=== PATIENT | male | born 1990 | race Two or more races ===

== ENCOUNTER 2018-03-15 12:40 | Emergency (ER) | payer SELFPAY ==
[~2018-03-15] VITALS: Ht 167.6 cm; Wt 59.0 kg
--- NOTE | 2018-03-15 13:00 | Emergency Room Report ---
History of Present Illness General Chief Complaint: Alcohol Intoxication Source: EMS Present Illness HPI 27-year-old male patient presents ER brought in by ambulance for alcohol intoxication. Unable to assess patient history. Patient sleeping during initial interview, in no acute distress. Nurse reports patient is frequently seen for alcohol intoxication. Allergies: Coded Allergies: UNABLE TO ASSESS (Unverified , 03/15/18) Patient History Past Medical History: see triage record Reviewed Nursing Documentation: PMH: Agreed; PSxH: Agreed Nursing Documentation-PMH Past Medical History Deferred: Pt Cognitively Impaired Past Medical History: No History, Except For Review of Systems All Other Systems: negative except mentioned in HPI Physical Exam Vital Signs Date Time Temp Pulse Resp B/P (MAP) Pulse Ox O2 Delivery O2 Flow Rate FiO2 03/15/18 11:46 72 20 100/50 96 Room Air Sp02 EP Interpretation: reviewed, normal General Appearance: well appearing, no apparent distress, alert, GCS 15, non- toxic Head: normocephalic, atraumatic, other - no lacerations, no hematoma, negative Vela sign, negative Raccoon eyes Eyes: bilateral eye normal inspection, bilateral eye PERRL ENT: hearing grossly normal, normal pharynx, no angioedema, normal voice, TMs + canals normal - no hemotympanum, uvula midline, moist mucus membranes Neck: full range of motion Respiratory: lungs clear, normal breath sounds, no rhonchi, no respiratory distress, no accessory muscle use, no wheezing, speaking full sentences Cardiovascular #1: regular rate, rhythm, no edema Gastrointestinal: non tender, soft, no mass, non-distended, no guarding, no rebound Genitourinary: no CVA tenderness Musculoskeletal: back normal, digits/nails normal, gait/station normal, normal range of motion, non-tender Neurologic: alert, oriented x3, responsive, motor strength/tone normal, sensory intact Psychiatric: mood/affect normal Skin: no rash Lymphatic: no adenopathy Medical Decision Making PA Attestation Dr. Mcmahon is my supervising Physician whom patient management has been discussed with. Diagnostic Impression: Primary Impression: Acute alcoholic intoxication ER Course Pt. presents to the ED BIBA ambulance for ETOH intoxication. multiple differentials considered. Vital signs: are WNL, pt. is afebrile ER course: Patient resting comfortably in no acute distress. Patient asleep during initial interview. Physical exam benign, lungs clear to auscultation, no trauma or lacerations to the head, negative Vela sign, negative raccoon eyes. Will allow patient to sleep off alcohol. Patient awoke and ambulated around ER. Patient denies acute symptoms in the ER at this time. Patient requesting to be discharged home. Patient appears stable for discharge to home, ambulating without difficulty. Instructed patient to not drink alcohol in excess. ER precautions given. Do not believe patient is a danger to herself or others at this time. DISCHARGE: At this time pt is stable for d/c to home. Patient is resting comfortably, in no acute distress, nontoxic appearing, talking without difficulty. Patient to take medications as instructed Will provide with patient care instructions and any necessary prescriptions. Care plan and follow-up instructions provided. Patient instructed to follow-up with primary care provider in 3 - 5 days. Patient questions asked and answered. Patient reports understanding and agreement to treatment plan. ER precautions given. Patient instructed to return to ER immediately for any new or worsening of symptoms including but not limited to increasing SOB, persistent fever, chest pain, intractable vomiting. - Please note that this Emergency Department Report was dictated using [employer] engineer technology software, occasionally this can lead to erroneous entry secondary to interpretation by the dictation equipment. Last Vital Signs Date Time Temp Pulse Resp B/P (MAP) Pulse Ox O2 Delivery O2 Flow Rate FiO2 03/15/18 11:46 72 20 100/50 96 Room Air Disposition: HOME, SELF-CARE Condition: Stable Patient Instructions: Alcohol Intoxication, [id number] Additional Instructions: Followup with primary care provider in 3 -5 days. Do not drink alcohol in excess. Patient questions asked and answered. ER precautions given, patient instructed to return to ER immediately for any new or worsening of symptoms. Hernan Ferrari Mar 15, 2018 13:00
[2018-03-15 14:33] VITALS: BP 100/50
[2018-03-15 14:34] VITALS: BP 100/50
== END 2018-03-15 15:30 | disposition home or self-care (01) ==
LOC: EDBD 12:40 → EMR 15:18
DX: F10.129 Alcohol abuse with intoxication, unspecified (principal)
CPT/HCPCS: 99283

== ENCOUNTER 2018-03-22 11:37 | Emergency (ER) | payer SELFPAY ==
[~2018-03-22] VITALS: Ht 170.2 cm; Wt 68.0 kg
--- NOTE | 2018-03-22 15:46 | Emergency Room Report ---
History of Present Illness General Chief Complaint: Alcohol Intoxication Present Illness HPI 27-year-old male patient presents the ER brought in by ambulance for EtOH intoxication. Patient is well-known to this ER for for previous visits to the ER for EtOH intoxication. Patient is resting comfortably in hallway bed. Per initial report, patient denies acute complaints. Allergies: Coded Allergies: UNABLE TO ASSESS (Unverified , 03/15/18) Patient History Past Medical History: see triage record Reviewed Nursing Documentation: PMH: Agreed; PSxH: Agreed Review of Systems All Other Systems: negative except mentioned in HPI Physical Exam Vital Signs Date Time Temp Pulse Resp B/P (MAP) Pulse Ox O2 Delivery O2 Flow Rate FiO2 03/22/18 11:32 97.9 98 18 138/70 100 Room Air 97.9 Sp02 EP Interpretation: reviewed, normal General Appearance: well appearing, no apparent distress, alert, GCS 15, non- toxic Head: normocephalic, atraumatic Eyes: bilateral eye normal inspection, bilateral eye PERRL ENT: hearing grossly normal, normal pharynx, no angioedema, normal voice, uvula midline, moist mucus membranes Neck: full range of motion Respiratory: lungs clear, normal breath sounds, no rhonchi, no respiratory distress, no accessory muscle use, no wheezing, speaking full sentences Cardiovascular #1: regular rate, rhythm, no edema Gastrointestinal: non tender, soft, no mass, non-distended, no guarding, no rebound Musculoskeletal: back normal, digits/nails normal, gait/station normal, normal range of motion, non-tender Neurologic: alert, oriented x3, responsive, motor strength/tone normal, sensory intact Psychiatric: mood/affect normal Medical Decision Making PA Attestation Dr. Mcmahon is my supervising Physician whom patient management has been discussed with. Diagnostic Impression: Primary Impression: Acute alcoholic intoxication ER Course Pt. presents to the ED BIB ambulance c/o alcohol intoxication Ddx considered but are not limited to drug use, alcohol use, psychosis. Vital signs: are WNL, pt. is afebrile ER COURSE: patient resting comfortably in bed, in no acute distress, nontoxic appearing. Physical exam benign, lungs clear to auscultation, no trauma or lacerations, no abdominal TTP. Will allow patient to sleep off EtOH intoxication Patient awoke and watching videos on cell phones. Patient requested food. Patient able to eat food and drink liquids without difficulty. Patient able to answer questions, and AOx4 patient requesting to leave. Patient able to walk and talk without difficulty. Patient resting comfortably in no acute distress. Patient asleep during initial interview. Patient denies acute symptoms in the ER at this time. Patient requesting to be discharged home. Patient appears stable for discharge to home, ambulating without difficulty. Instructed patient to not drink alcohol in excess. ER precautions given. Do not believe patient is a danger to herself or others at this time. DISCHARGE: At this time pt is stable for d/c to home. Patient is resting comfortably, in no acute distress, nontoxic appearing, talking without difficulty. Patient to take medications as instructed Will provide with patient care instructions and any necessary prescriptions. Care plan and follow-up instructions provided. Patient instructed to follow-up with primary care provider in 3 - 5 days. Patient questions asked and answered. Patient reports understanding and agreement to treatment plan. ER precautions given. Patient instructed to return to ER immediately for any new or worsening of symptoms including but not limited to increasing SOB, persistent fever. - Please note that this Emergency Department Report was dictated using [employer] games mechanic technology software, occasionally this can lead to erroneous entry secondary to interpretation by the dictation equipment. Last Vital Signs Date Time Temp Pulse Resp B/P (MAP) Pulse Ox O2 Delivery O2 Flow Rate FiO2 03/22/18 11:32 97.9 98 18 138/70 100 Room Air 97.9 Disposition: HOME, SELF-CARE Condition: Stable Patient Instructions: Alcohol Intoxication, [id number] Additional Instructions: Followup with primary care provider in 3 -5 days. Take medications as directed. Patient questions asked and answered. ER precautions given, patient instructed to return to ER immediately for any new or worsening of symptoms. Hernan Ferrari Mar 22, 2018 15:46
[2018-03-22 19:24] VITALS: BP 122/72
[2018-03-22 19:26] VITALS: BP 122/71
== END 2018-03-22 19:26 | disposition home or self-care (01) ==
LOC: EDUNIT# 11:37 → EDBD 11:37 → EMR 14:40
DX: F10.129 Alcohol abuse with intoxication, unspecified (principal)
CPT/HCPCS: 99283

== ENCOUNTER 2020-05-19 22:49 | Emergency (ER) | payer SELFPAY ==
[~2020-05-19] VITALS: Ht 175.3 cm; Wt 63.5 kg
[2020-05-19 23:02] VITALS: BP 140/70
--- NOTE | 2020-05-19 23:02 | NUR ---
ED Nurse Note: pt destiny from street. Per EMS, pt was found intoxicated and laying in a person's front yard. Pt aao x 3, unable to ambulate with steady gait. Pt behavior is pleasant and happy. Pt states he consumed numerous beers this evening. Pt denies pain at this time. Pt resting in bed comfortably. Pt given food and drinks per ERMD. ERMD at bedside. Awaiting further orders.
--- NOTE | 2020-05-19 23:09 | Emergency Room Report ---
History of Present Illness General Chief Complaint: Alcohol Intoxication Source: Patient, EMS Present Illness HPI Disclaimer: Please note that this report is being documented using [employer] technology. This can lead to erroneous entry secondary to incorrect interpretation by the dictating instrument. HPI: 29-year-old male brought in for evaluation of alcohol intoxication. He arrives by EMS after he was found passed out on someone's lawn. He arrives awake and alert. He reports drinking approximately 18 beers throughout the day. He has multiple liquor bottles in his backpack with him. Denies injury or trauma. PMH: Alcohol use PSH: Unable to obtain from patient Allergies: Unable to obtain from patient Social Hx: Alcohol use Allergies: Coded Allergies: UNABLE TO ASSESS (Unverified , 03/15/18) COVID-19 Screening Contact w/high risk pt: No Experienced COVID-19 symptoms?: No COVID-19 Testing performed COUNTER SUPPLY WORKER: No Nursing Documentation-PMH Past Medical History Deferred: Pt Cognitively Impaired Review of Systems All Other Systems: negative except mentioned in HPI Physical Exam Vital Signs Date Time Temp Pulse Resp B/P (MAP) Pulse Ox O2 Delivery O2 Flow Rate FiO2 05/19/20 22:52 98.4 70 16 140/70 (93) 98 Room Air General: Awake, no acute distress, appears intoxicated HEENT: NC/AT. EOMI. injected sclera bilaterally. Dry mucous membranes. Cardiovascular: RRR. S1 and S2 normal. No murmur appreciated Resp: Normal work of breathing. No cough, wheezing or crackles appreciated Abdomen: Abdomen is soft, nondistended. Nontender Skin: Intact. No abrasions, laceration or rash over the exposed skin MSK: Normal tone and bulk. Moving all extremities. No obvious deformity. Neuro: Awake, mentating appropriately. Appears intoxicated clinically. Moving all extremities. Medical Decision Making Diagnostic Impression: Primary Impression: Acute alcoholic intoxication ER Course Is a 29-year-old male presenting for evaluation of alcohol intoxication. He is awake and alert though clinically is intoxicated. The patient admits to drinking approximately 18 beers today. He is slurring his speech but has no evidence of trauma, mentating appropriately otherwise. No indication for acute labs or imaging at present. Will allow to metabolize and provide food and hydration. Will reevaluate frequently and advance work-up as needed. 0130: On reevaluation the patient was found sleeping comfortably. Awakens easily to light touch. Still remains clinically intoxicated and will allow to metabolize further. 0300: Patient awoke and inform nursing staff that he like to return home. He states he feels well enough to walk home and no longer wish to stay in the emergency department. I told him he could stay a few more hours to sleep until daylight however he declined stating that he needed to get home and get to sleep. He is ambulating with a steady gait and has no complaints at this time. Stable for outpatient follow-up. Last Vital Signs Date Time Temp Pulse Resp B/P (MAP) Pulse Ox O2 Delivery O2 Flow Rate FiO2 05/19/20 22:52 98.4 70 16 140/70 (93) 98 Room Air Disposition: HOME, SELF-CARE Condition: Stable Scripts Folic Acid* (FOLIC ACID*) 1 Mg Tablet 1 MG ORAL DAILY, #30 TAB Prov: Nestor Dennison MD 05/20/20 Thiamine Hcl* (VITAMIN B-1*) 100 Mg Tablet 100 MG ORAL DAILY, #30 TAB 0 Refills Prov: Nestor Dennison MD 05/20/20 Nestor Dennison MD May 19, 2020 23:09
[2020-05-20 01:15] VITALS: BP 125/72
--- NOTE | 2020-05-20 01:15 | NUR ---
ED Nurse Note: pt sleeping in bed comfortably. No ss of distress noted. will continue to monitor.
[2020-05-20] MEDS ORDERED: VITAMIN B-1100 MG ORAL (01:33)
[2020-05-20] MEDS ORDERED: FOLIC ACID1 MG ORAL (01:33)
--- NOTE | 2020-05-20 02:45 | NUR ---
ED Nurse Note: Pt awake and ambulating around room with steady gait. Pt states that he is ready to go home. Pt aao x 4. Pt informed of current time and was encouraged to stay until morning, pt maintained request to go home. Pt able to answer all questions appropriatly with no complications. Awaiting further orders from ERMD.
[2020-05-20 03:00] VITALS: BP 131/72
--- NOTE | 2020-05-20 03:00 | NUR ---
ER DISCHARGE NOTE: Patient is cleared to be discharged home per ERMD, pt is aox4, 99% on room air, with stable vital signs. pt was given dc and prescription instructions, pt was able to verbalize understanding, pt id band removed. pt is able to ambulate with steady gait. pt took all belongings.
== END 2020-05-20 03:00 | disposition home or self-care (01) ==
LOC: EDBD 22:49 → EMR 23:08
DX: F10.129 Alcohol abuse with intoxication, unspecified (principal)
CPT/HCPCS: 99282